=== PATIENT | female | born 2000 | race Hispanic/Latino ===

== ENCOUNTER 2021-09-08 18:12 | Emergency (ER) | payer OTHER ==
[~2021-09-08] VITALS: Ht 165.1 cm; Wt 90.7 kg
[2021-09-08] MEDS ORDERED: DIPHTH/TETANUS/ACEL. PERTUSSIS 0.5 ML SYR IM ONE (18:45)
[2021-09-08] MEDS ORDERED: CLINDAMYCIN PHOS 600 MG/ 4 ML VIAL IM ONE (18:45)
[2021-09-08] MEDS ORDERED: IBUPROFEN 600 MG TAB PO STA (19:02)
[2021-09-08] MEDS ORDERED: AUGMENTIN 875-1 EACH PO (19:08)
[2021-09-08] MEDS ORDERED: IBUPROFEN600 MG PO (19:09)
[2021-09-08] MEDS ORDERED: TETANUS/DIPHTHERIA TOX ADULT 0.5 ML SYR ONE (19:10)
[2021-09-08] MEDS ORDERED: IBUPROFEN 600 MG TAB ONE (19:13)
[2021-09-08] MEDS ORDERED: CLINDAMYCIN PHOS 600 MG/ 4 ML VIAL ONE (19:14)
== END 2021-09-08 19:52 | disposition home or self-care (01) ==
LOC: FSED 18:35
DX: S61.452A Open bite of left hand, initial encounter (principal); W54.0XXA Bitten by dog, initial encounter; Y93.K1 Activity, walking an animal; Y92.488 Other paved roadways as the place of occurrence of the external cause
CPT/HCPCS: 81025; 90471; 90714; 99283